=== PATIENT | female | born 1995 | race Caucasian/White ===

== ENCOUNTER 2017-10-23 09:20 | Emergency (ER) | payer BC, OTHER ==
[2017-10-23] MEDS ORDERED: RANITIDINE 50 MG/2 ML VIAL IVP ONE (09:23)
[2017-10-23] MEDS ORDERED: IPRATROPIUM/ALBUTEROL 3 ML DEYVIAL IH ONE (09:23)
[2017-10-23] MEDS ORDERED: methylPREDNISolone SOD SUCC 125 MG/2 ML VIAL IVP ONE (09:23)
--- NOTE | 2017-10-23 09:37 | EDPHY ---
H & P Time Seen by Provider: 10/23/17 09:34 HPI/ROS: HPI: This is a 21-year-old female who presents with Chief Complaint: Allergic reaction Location: Body Quality: Allergic reaction Duration: 30 min prior to arrival Signs and Symptoms: + shortness of breath at rest, + shortness of breath on exertion, + cough, no chest pain, no palpitations, + wheezing, no fever, no injury/trauma, + bilateral eyelid swelling, + sensation of throat swelling Timing: Acute Severity: Moderate Context: Patient has a history of allergies with mold and exercise-induced asthma presents with sudden onset around 845 of allergic reaction consisting of bilateral for eyelid swelling, feeling of throat swelling, wheezing, shortness of breath when she arrived at work. 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 She has not eaten any new foods. She had a titanium plate removed in her arm recently due to allergies. She has never had to be intubated does not carry around an EpiPen. She took 2 Benadryl 1 hr prior to arrival with no relief. A co-worker and friend drove her from work to the emergency room. Modifying Factors: See above Comment: ROS: see HPI Constitutional: No fever, no chills, no weight loss Eyes: No blurred vision Respiratory: + shortness of breath, no cough Cardiovascular: No chest pain, no palpitations, no lower extremity edema Gastrointestinal: No nausea, no vomiting, no diarrhea Genitourinary: No dysuria Extremities: No myalgias Neurologic: No weakness, no numbness Skin: No rashes Hematologic: No bruising, no bleeding MEDICAL/SURGICAL/SOCIAL HISTORY: Medical history: Generally healthy. Does not take any regular medications. Surgical history: Denies Social history: Employed CONSTITUTIONAL: Anxious, moderate distress, young adult female, awake and alert , nontoxic appearing HEENT: Atraumatic and normocephalic, PERRL, EOMI. Tympanic membranes clear. Oropharynx clear, no exudate and moist pink mucosa. No postpharyngeal edema. Uvula midline. No trachea deviation. Airway patent. No lymphadenopathy. No meningismus. Cardiovascular: Normal S1/S2, tachycardia, regular rhythm, without murmur rub or gallop. PULMONARY/CHEST: Symmetrical and nontender. Inspiratory and expiratory wheezing throughout. Fair air movement. + accessory muscle usage. + tachypnea ABDOMEN: Soft, nondistended, nontender, no rebound, no guarding, no peritoneal signs, no masses or organomegaly. No CVAT. EXTREMITIES: 2/2 pulses, strength 5/5, no deformities, no clubbing, no cyanosis or edema. NEUROLOGICAL: no focal neuro deficits. GCS 15. SKIN: Warm and dry, mild bilateral upper eyelid swelling, no erythema. no rash. Good capillary refill. Source: Patient Exam Limitations: No limitations - Medical/Surgical History Hx Asthma: No Hx Chronic Respiratory Disease: No Hx Diabetes: No Hx Cardiac Disease: No Hx Renal Disease: No Hx Cirrhosis: No Hx Alcoholism: No Hx HIV/AIDS: No Hx Splenectomy or Spleen Trauma: Yes Other PMH: T&A/concussions/spleen lac/ - Social History Smoking Status: Never smoked Constitutional: Initial Vital Signs Heart Rate 93 10/23/17 09:36 Respiratory Rate 24 H 10/23/17 09:36 Blood Pressure 110/77 10/23/17 09:36 O2 Sat (%) 100 10/23/17 09:36 O2 Delivery Mode Nasal Cannula O2 (L/minute) 2 Allergies/Adverse Reactions: No Known Allergies Allergy (Unverified 01/05/15 10:42) Home Medications: Medication Instructions Recorded Citalopram 08/19/13 Hydrocodone/APAP 5/325 [[place] 1 - 2 each PO Q6 PRN #20 tab 01/05/15 5/325] EPINEPHrine [Epipen 0.3 MG] 0.3 mg IM ONCE #2 syr 10/23/17 Famotidine [Pepcid 20 MG (*)] 20 mg PO BID #10 tab 10/23/17 predniSONE [predniSONE TAPER] 10 mg PO DAILY 6 Days ea 10/23/17 Medical Decision Making ED Course/Re-evaluation: 0925: Upon arrival patient placed on 2 L nasal cannula although O2 sats were 99 % on room air Given IV Solu-Medrol, IV Zantac, IV Benadryl and a DuoNeb 0945: Reassessed patient; moving air better. Increased aeration. Still high- pitched upper airway sounds but less dyspnea with talking. Epinephrine ordered. 1025: Reassessed patient. All symptoms resolved and vitals stable. Drinking water without difficulty. No signs of anaphylaxis/angioedema/airway compromise This patient was seen under the supervision of my secondary supervising physician. I evaluated care for this patient independently. Differential Diagnosis: Differential diagnosis includes but is not limited to allergic reaction, anaphylaxis, respiratory distress, angioedema, asthma exacerbation. - Data Points Medications Given: Discontinued Medications Albuterol/Ipratropium (Duoneb) 3 ml IH EDNOW ONE Stop: 10/23/17 09:24 Last Admin: 10/23/17 09:30 Dose: 3 ml Diphenhydramine HCl (Benadryl Injection) 50 mg IVP EDNOW ONE Stop: 10/23/17 09:24 Last Admin: 10/23/17 09:31 Dose: 50 mg Epinephrine HCl (Epinephrine) 0.3 mg IM EDNOW ONE Stop: 10/23/17 09:42 Last Admin: 10/23/17 09:43 Dose: 0.3 mg Methylprednisolone Sodium Succinate (Solu-Medrol) 125 mg IVP EDNOW ONE Stop: 10/23/17 09:24 Last Admin: 10/23/17 09:30 Dose: 125 mg Ranitidine HCl (Zantac) 50 mg IVP EDNOW ONE Stop: 10/23/17 09:24 Last Admin: 10/23/17 09:30 Dose: 50 mg Departure - Departure Disposition: Home, Routine, Self-Care Clinical Impression: Allergic reaction Qualifiers: Encounter type: initial encounter Qualified Code(s): T78.40XA - Allergy, unspecified, initial encounter Condition: Good Instructions: Anaphylaxis (ED), Allergies (ED) Additional Instructions: Please drink a minimum of 64 oz of fluids today. Rest for the next day or two until feeling better. Please avoid all allergy triggers. Take Benadryl 25-50 mg every 6 hours as needed for allergic reaction. Follow up with PCP/cigar patcher in the next 5-7 days. Referrals: PCP Not In,Dictionary [Medical Doctor] - As per Instructions Stand Alone Forms: Work Excuse Prescriptions: EPINEPHrine [Epipen 0.3 MG] 0.3 mg IM ONCE #2 syr Famotidine [Pepcid 20 MG (*)] 20 mg PO BID #10 tab predniSONE [predniSONE TAPER] 10 mg PO DAILY 6 Days ea
[2017-10-23 10:42] VITALS: RESP 16
[2017-10-23 12:06] VITALS: BP 105/65; PULSE 90; TEMP 98.4; O2SAT 94
== END 2017-10-23 12:10 | disposition home or self-care (01) ==
DX: T78.40XA Allergy, unspecified, initial encounter (principal)
CPT/HCPCS: 96374